=== PATIENT | male | born 2000 | race Two or more races ===

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

== ENCOUNTER 2022-02-05 09:42 | Inpatient (IN) | payer OTHER ==
[~2022-02-05] VITALS: Ht 177.8 cm; Wt 104.3 kg
--- NOTE | 2022-02-05 10:18 | NUR ---
SE RECIBE MASCULINO ALERTA Y ORIENTADO X3 EN COMPANIA DE MADRE. PTE REFIERE DESDE EL ERINN SENTIR MALESTAR GENERAL. PRESENTA TEMP DE 101.1. SE ADMNISTRA TYLENOL 1000MG. SE UBICA EN MIKE PEDIATRICA PEND A EVALUACION MEDICA.
--- NOTE | 2022-02-05 11:35 | NUR ---
EVALUADO PTE. POR DRA. SILVESTRE. SE ORIENTA SOBRE TRATAMIENTO Y MEDICAMENTOS LOS CUALES SE ADM. AURY ORDEN MEDICA, MUESTRAS TOMADAS Y SE ENVIAN AL LABORATORIO. SE DIANA PTE. EN MERRILL CON BARRANDAS ELEVADAS ACOMPANADO DE FAMILIAR.
--- NOTE | 2022-02-05 13:03 | NUR ---
TERAPIAS NOTIFICADAS A MRS. MILLARD.
--- NOTE | 2022-02-05 14:07 | NUR ---
DRA. SILVESTRE ADMITE PTE. A SERVICIO DE DRA. POE. SE ORIENTA SOBRE TRATAMIENTO, MEDICAMENTOS Y ADMISION. ORDENES DE ADMISION TOMADAS. FAMILIAR HACE ARREGLOS DE ADMISION. TERAPIA SHEN POR MR. HACKETT., DIETA SHEN. SE ORIENTA A COGER U/C Y SE DIANA PTE. BAJO OBSERVACION POR CAMBIO.
== END 2022-02-06 09:37 | disposition home or self-care (01) | DRG 194 ==
LOC: EMR PED 09:42 → PED 14:30
PROVIDERS: ADMIT Specialist; ATTEND Specialist
PROC: 3E0F7GC Introduction of Other Therapeutic Substance into Respiratory Tract, Via Natural or Artificial Opening (ICD-10-PCS; principal; 2022-02-05)
PROC: 8E0ZXY6 Isolation (ICD-10-PCS; 2022-02-05)
DX: J10.1 Influenza due to other identified influenza virus with other respiratory manifestations (principal); J45.901 Unspecified asthma with (acute) exacerbation; Z20.822 Contact with and (suspected) exposure to COVID-19